=== PATIENT | male | born 1975 | race Caucasian/White ===

== ENCOUNTER 2016-08-23 14:59 | Inpatient (IN) | payer MEDICARE, OTHER ==
[~2016-08-23] VITALS: Ht 193 cm; Wt 135.2 kg
[2016-08-23 15:39] LABS: HEMOGLOBIN 11.7 gm/dl (14.0-17.5); RED BLOOD COUNT 4.55 M/UL (4.20-5.50); WHITE BLOOD COUNT 7.3 K/UL (4.5-11.0)
[2016-08-23] MEDS ORDERED: ASPIRIN81 MG PO (23:23)
[2016-08-23] MEDS ORDERED: LISINOPRIL2.5 MG PO (23:23)
[2016-08-23] MEDS ORDERED: HYDROCHLOROTHIA25 MG PO (23:24)
[2016-08-23] MEDS ORDERED: BUMETANIDE2 MG PO (23:24)
[2016-08-23] MEDS ORDERED: METOPROLOL TAR100 MG PO (23:25)
[2016-08-23] MEDS ORDERED: POTASSIUM99 MG PO (23:27)
[2016-08-23] MEDS ORDERED: VENTOLIN/PROVENT2 MG INH (23:28)
[2016-08-24 03:29] LABS: HEMOGLOBIN 11.2 gm/dl (14.0-17.5); RED BLOOD COUNT 4.44 M/UL (4.20-5.50); WHITE BLOOD COUNT 7.7 K/UL (4.5-11.0)
[2016-08-24] MEDS ORDERED: VENTOLIN HFA 66.7 GM PO (06:57)
[2016-08-24] MEDS ORDERED: K-DUR TAB 20 M20 MEQ PO (06:59)
[2016-08-25 04:00] LABS: HEMOGLOBIN 11.9 gm/dl (14.0-17.5); RED BLOOD COUNT 4.61 M/UL (4.20-5.50); WHITE BLOOD COUNT 7.8 K/UL (4.5-11.0)
[2016-08-25 04:11] LABS: BUN/CREATININE RATIO 26 (0-10)
[2016-08-26 06:14] LABS: HEMOGLOBIN 10.8 gm/dl (14.0-17.5); RED BLOOD COUNT 4.23 M/UL (4.20-5.50); WHITE BLOOD COUNT 8.5 K/UL (4.5-11.0)
[2016-08-26 06:39] LABS: BUN/CREATININE RATIO 23 (0-10)
[2016-08-27 04:07] LABS: HEMOGLOBIN 10.6 gm/dl (14.0-17.5); RED BLOOD COUNT 4.12 M/UL (4.20-5.50); WHITE BLOOD COUNT 6.5 K/UL (4.5-11.0)
[2016-08-27 04:28] LABS: BUN/CREATININE RATIO 17 (0-10)
[2016-08-28 04:22] LABS: HEMOGLOBIN 10.8 gm/dl (14.0-17.5); RED BLOOD COUNT 4.21 M/UL (4.20-5.50); WHITE BLOOD COUNT 6.3 K/UL (4.5-11.0)
[2016-08-28 04:46] LABS: BUN/CREATININE RATIO 18 (0-10)
[2016-08-29 04:22] LABS: HEMOGLOBIN 12.1 gm/dl (14.0-17.5); RED BLOOD COUNT 4.68 M/UL (4.20-5.50); WHITE BLOOD COUNT 9.8 K/UL (4.5-11.0)
[2016-08-29 04:43] LABS: BUN/CREATININE RATIO 18 (0-10)
[2016-08-30 05:07] LABS: HEMOGLOBIN 11.9 gm/dl (14.0-17.5); RED BLOOD COUNT 4.54 M/UL (4.20-5.50)
[2016-08-31 04:38] LABS: HEMOGLOBIN 11.8 gm/dl (14.0-17.5); RED BLOOD COUNT 4.57 M/UL (4.20-5.50); WHITE BLOOD COUNT 12.9 K/UL (4.5-11.0)
[2016-09-01 04:28] LABS: HEMOGLOBIN 11.3 gm/dl (14.0-17.5); RED BLOOD COUNT 4.43 M/UL (4.20-5.50)
[2016-09-01 05:05] LABS: BUN/CREATININE RATIO 37 (0-10)
[2016-09-02 04:18] LABS: HEMOGLOBIN 11.3 gm/dl (14.0-17.5); RED BLOOD COUNT 4.39 M/UL (4.20-5.50); WHITE BLOOD COUNT 10.2 K/UL (4.5-11.0)
[2016-09-02 04:38] LABS: BUN/CREATININE RATIO 37 (0-10)
[2016-09-03 02:33] LABS: HEMOGLOBIN 11.3 gm/dl (14.0-17.5); RED BLOOD COUNT 4.36 M/UL (4.20-5.50); WHITE BLOOD COUNT 10.4 K/UL (4.5-11.0)
[2016-09-03 02:49] LABS: BUN/CREATININE RATIO 31 (0-10)
[2016-09-04 07:46] LABS: BUN/CREATININE RATIO 31 (0-10)
[2016-09-04 18:31] LABS: BUN/CREATININE RATIO 33 (0-10)
[2016-09-05 03:56] LABS: HEMOGLOBIN 11.2 gm/dl (14.0-17.5); RED BLOOD COUNT 4.33 M/UL (4.20-5.50); WHITE BLOOD COUNT 10.2 K/UL (4.5-11.0)
[2016-09-05 04:15] LABS: BUN/CREATININE RATIO 34 (0-10)
[2016-09-06 03:51] LABS: HEMOGLOBIN 11.4 gm/dl (14.0-17.5); RED BLOOD COUNT 4.44 M/UL (4.20-5.50); WHITE BLOOD COUNT 10.7 K/UL (4.5-11.0)
[2016-09-06 04:08] LABS: BUN/CREATININE RATIO 30 (0-10)
[2016-09-07 04:53] LABS: BUN/CREATININE RATIO 28 (0-10)
[2016-09-10 05:57] LABS: BUN/CREATININE RATIO 36 (0-10)
[2016-09-10] MEDS ORDERED: FOLIC ACID 1 MG1 MG PO (17:43)
[2016-09-10] MEDS ORDERED: LANOXIN TAB 00.25 MG PO (17:43)
[2016-09-10] MEDS ORDERED: TAPAZOLE5 MG PO (17:44)
[2016-09-10] MEDS ORDERED: PROAMATINE 2.52.5 MG PO (17:45)
[2016-09-10] MEDS ORDERED: THERAGRAN M TAB1 EA PO (17:50)
== END 2016-09-10 18:30 | disposition home health service (06) | DRG 291 ==
LOC: ER1 14:59 → CCU 23:30 → PROG CARE 23:30 → CCU 08-29 06:00 → PROG CARE 09-01 17:01 → MED SURG 4 09-06 19:42
PROVIDERS: Emergency Medicine; Hospitalist; Internal Medicine; Internal Medicine Cardiovascular Disease; Internal Medicine Nephrology; ADMIT Internal Medicine
DX: I13.0 Hypertensive heart and chronic kidney disease with heart failure and stage 1 through stage 4 chronic kidney disease, or unspecified chronic kidney disease (principal); R57.0 Cardiogenic shock; I50.23 Acute on chronic systolic (congestive) heart failure; J96.01 Acute respiratory failure with hypoxia; N17.9 Acute kidney failure, unspecified; B17.9 Acute viral hepatitis, unspecified; I48.92 Unspecified atrial flutter; E87.1 Hypo-osmolality and hyponatremia; D68.9 Coagulation defect, unspecified; I47.2 Ventricular tachycardia; I42.6 Alcoholic cardiomyopathy; I42.0 Dilated cardiomyopathy; N18.1 Chronic kidney disease, stage 1; E87.6 Hypokalemia; E87.5 Hyperkalemia; J45.909 Unspecified asthma, uncomplicated; E03.9 Hypothyroidism, unspecified; T46.0X5A Adverse effect of cardiac-stimulant glycosides and drugs of similar action, initial encounter; K74.60 Unspecified cirrhosis of liver; D50.9 Iron deficiency anemia, unspecified; E83.42 Hypomagnesemia; E16.2 Hypoglycemia, unspecified; R11.2 Nausea with vomiting, unspecified; R19.7 Diarrhea, unspecified; K59.00 Constipation, unspecified; M10.9 Gout, unspecified; G89.29 Other chronic pain; M25.50 Pain in unspecified joint; E66.9 Obesity, unspecified; T50.1X5A Adverse effect of loop [high-ceiling] diuretics, initial encounter; F10.21 Alcohol dependence, in remission; F17.200 Nicotine dependence, unspecified, uncomplicated; Z95.810 Presence of automatic (implantable) cardiac defibrillator; Z86.711 Personal history of pulmonary embolism; Z86.718 Personal history of other venous thrombosis and embolism; Z91.19 Patient's noncompliance with other medical treatment and regimen; Z68.35 Body mass index [BMI] 35.0-35.9, adult; Z79.82 Long term (current) use of aspirin; Z79.899 Other long term (current) drug therapy; Z82.49 Family history of ischemic heart disease and other diseases of the circulatory system
CPT/HCPCS: ECHO; 36415; 71010; 71275; 74000; 76705; 80048; 80053; 80074; 80076; 80162; 80307; 81001; 82140; 82150; 82436; 82533; 82550; 82553; 82570; 82962; 83605; 83690; 83735; 83874; 83880; 83935; 84132; 84133; 84156; 84295; 84300; 84439; 84443; 84484; 85025; 85027; 85379; 85610; 85730; 87040; 87086; 93005; 93306; 94640; 94664; 96361; 96365; 96366; 96367; 96375; 97110; 97116; 97530; 97535; 99291; J0692; J1160; J1250; J1265; J1650; J1940; J2260; J2405; J3370; J3411; J3475; J7030; J7042; J7050; J7070; Q9963